=== PATIENT | female | born 1950 | race Caucasian/White ===

== ENCOUNTER 2024-04-02 16:29 | Outpatient (CLI) | payer MEDICARE ==
[~2024-04-02 16:29] MED LIST: ATEN50TA2 PO; BACL20TA2 PO; BUTA1CAP40 PO; CHOL10002 PO; CRAN400T3 PO; DULO60CA65 PO; EZET10TA7 PO; FURO20TA4 PO; HYDR-3972 PO; POTA99TA26 PO; PREG300C PO; PREVCR VG; VITA1CAP PO; ZOLP10TA5 PO
== END 2024-04-02 23:59 | disposition home or self-care (01) ==
LOC: MRI02 16:29
PROVIDERS: ATTEND Pediatrics Sports Medicine
DX: M17.11 Unilateral primary osteoarthritis, right knee (principal); M71.21 Synovial cyst of popliteal space [Baker], right knee; M94.261 Chondromalacia, right knee; M25.561 Pain in right knee
CPT/HCPCS: 73721